=== PATIENT | female | born 2005 | race Two or more races ===

== ENCOUNTER 2024-12-17 09:37 | Outpatient (CLI) | payer OTHER | END 2024-12-17 09:45 | disposition home or self-care (01) | LOC: PRENATAL 09:37 | PROVIDERS: ATTEND Obstetrics & Gynecology Maternal & Fetal Medicine | DX: O44.00 Complete placenta previa NOS or without hemorrhage, unspecified trimester (principal); O30.90 Multiple gestation, unspecified, unspecified trimester; O60.00 Preterm labor without delivery, unspecified trimester; O26.879 Cervical shortening, unspecified trimester; O34.30 Maternal care for cervical incompetence, unspecified trimester; Z3A.22 22 weeks gestation of pregnancy ==